=== PATIENT | female | born 1975 | race Hispanic/Latino ===

== ENCOUNTER → 2016-06-01 | Outpatient (CLI) | payer OTHER ==
[2016-06-01 14:21] LABS: BASO % 0.2 % (0.0-1.0); EOS # 0.1 K/mm3 (0.0-0.50); EOS % 1.6 % (0.0-3.0); LARGE UNSTAINED CELL # 0.1 K/mm3 (0.0-0.4); LARGE UNSTAINED CELL % 1.1 % (0.0-4.0); LYMPH # 1.2 K/mm3 (1.5-4.5); LYMPH % 19.6 % (24.0-44.0); MEAN CORPUSCULAR HEMOGLOBIN 32.9 pg (27.0-33.0); MEAN CORPUSCULAR HGB CONC 33.9 g/dl (32.0-36.5); MONO # 0.4 K/mm3 (0.0-0.8); NEUTROPHILS # 4.1 K/mm3 (1.8-7.7); NEUTROPHILS % 71.4 % (36.0-66.0); PLATELET COUNT, AUTOMATED 189 k/mm3 (150-450); RED CELL DISTRIBUTION WIDTH 13.1 % (11.5-14.5); WHITE BLOOD COUNT 5.8 K/mm3 (4.0-10.0)
== END ==
LOC: M SMT 10:48
PROVIDERS: ATTEND Advanced Practice Midwife
DX: Z34.83 Encounter for supervision of other normal pregnancy, third trimester (principal)

== ENCOUNTER → 2016-06-01 | Outpatient (CLI) | payer OTHER ==
--- NOTE | 2016-06-01 09:54 | REP ---
OB ULTRASOUND: Real-time sonographic evaluation of the gravid uterus performed. There is a single living intrauterine gestation with an estimated age of 26 weeks and EDC 09/07/2016. Today's measurements indicate appropriate growth. BPD 70 mm 28 weeks 2 days, over 95th percentile HC 252 mm 27 weeks 3 days, 80th percentile AC 235 mm 27 weeks 6 days, 88th percentile FL 47 mm 25 weeks 4 days, 43rd percentile HC/AC ratio 1.07 within normal range. Estimated weight 1019 grams, 73rd percentile. Cervix closed and measures 4.2 cm in length. heart rate 147 beats per minute. SEEN/GROSSLY UNREMARKABLE Lateral ventricles Yes Posterior fossa Yes Upper lip Yes Four-chamber heart Yes LVOT Yes RVOT Yes Stomach Yes Cord insertion Yes Three vessel cord Yes Kidneys Yes Bladder Yes Spine Yes position: Breech. Placenta: Anterior and grade 1 with no previa or abruption. Amniotic fluid: Within normal limits. Signed by Oswald Borja MD 06/01/2016 10:13 A
== END ==
LOC: M SMT 08:08
PROVIDERS: ATTEND Advanced Practice Midwife
DX: Z34.83 Encounter for supervision of other normal pregnancy, third trimester (principal)

== ENCOUNTER → 2016-07-12 | Outpatient (CLI) | payer OTHER | LOC: M LAB 09:08 | PROVIDERS: ATTEND Advanced Practice Midwife | DX: Z36 Encounter for antenatal screening of mother (principal); Z3A.00 Weeks of gestation of pregnancy not specified ==

== ENCOUNTER → 2016-08-15 | Outpatient (REF) | payer OTHER | LOC: M LAB REF 17:05 | PROVIDERS: ATTEND Obstetrics & Gynecology | DX: Z34.83 Encounter for supervision of other normal pregnancy, third trimester (principal) ==

== ENCOUNTER 2016-08-19 08:41 | Outpatient (CLI) | payer OTHER ==
[~2016-08-19] VITALS: Ht 157.5 cm; Wt 66.0 kg
[2016-08-19 09:08] VITALS: BP 96/54
== END 2016-08-19 09:30 | disposition home or self-care (01) ==
LOC: M LDO 08:41
PROVIDERS: ATTEND Specialist
DX: O26.893 Other specified pregnancy related conditions, third trimester (principal); O09.513 Supervision of elderly primigravida, third trimester; Z3A.37 37 weeks gestation of pregnancy

== ENCOUNTER 2016-08-30 20:00 | Outpatient (CLI) | payer OTHER ==
[~2016-08-30] VITALS: Ht 149.9 cm; Wt 68.0 kg
[2016-08-30] MEDS ORDERED: PRENTAB9 PO (20:06)
== END 2016-08-30 22:20 | disposition home or self-care (01) ==
LOC: M LDO 20:00
PROVIDERS: ATTEND Obstetrics & Gynecology
DX: O47.1 False labor at or after 37 completed weeks of gestation (principal); O09.523 Supervision of elderly multigravida, third trimester; Z3A.38 38 weeks gestation of pregnancy

== ENCOUNTER 2016-09-12 16:23 | Inpatient (IN) | payer OTHER ==
[2016-09-12] VITALS (7 sets, daily range): BP systolic 92–104; BP diastolic 51–66
[~2016-09-12] VITALS: Ht 149.9 cm; Wt 66.0 kg
[~2016-09-12 16:23] MED LIST: PRENTAB9 PO
[2016-09-12 17:16] LABS: MEAN CORPUSCULAR HEMOGLOBIN 32.9 pg (27.0-33.0); MEAN CORPUSCULAR VOLUME 89.9 fl (80.0-96.0); RED CELL DISTRIBUTION WIDTH 13.4 % (11.5-14.5); WHITE BLOOD COUNT 6.3 K/mm3 (4.0-10.0)
[2016-09-12 17:18] LABS: MEAN CORPUSCULAR HGB CONC 35.9 g/dl (32.0-36.5)
[2016-09-12] MEDS: miSOPROStol 50 MCG 1/2 TAB (S0191) PO SCH ×2 (17:48→22:08)
[2016-09-13] VITALS (11 sets, daily range): BP systolic 88–111; BP diastolic 53–67
[2016-09-13] MEDS: miSOPROStol 50 MCG 1/2 TAB (S0191) PO SCH (02:07)
[2016-09-13] MEDS ORDERED: OXYTOCIN 30 UNITS IN 0.9% NaCl 500ML IV BAG (J2590) As Ordered ONE (03:00)
[2016-09-13] MEDS ORDERED: MIDAZOLAM INJ 2 MG/2 ML VIAL (J2250) As Ordered ONE (03:35)
[2016-09-13] MEDS ORDERED: ceFAZolin 2 GM/D5W 50 ML IV BAG (J0690) As Ordered ONE (03:45)
[2016-09-13] MEDS ORDERED: fentaNYL 100 MCG/2 ML INJECTION (J3010) As Ordered ONE ×2 (03:50→04:51)
[2016-09-13] MEDS ORDERED: ONDANSETRON 4MG/2ML VIAL (J2405) As Ordered ONE (03:51)
[2016-09-13] MEDS ORDERED: KETOROLAC 60 MG/2 ML VIAL (J1885) As Ordered ONE (03:51)
[2016-09-13] MEDS ORDERED: GLYCOPYRROLATE INJ 0.2 MG/ML 2 ML VIAL As Ordered ONE ×2 (03:53→03:54)
[2016-09-13] MEDS ORDERED: NEOSTIGMINE 10 MG/10 ML VIAL (J2710) As Ordered ONE (03:54)
[2016-09-13 04:05] LABS: CORD GAS ABE A -16.8; CORD GAS HCO3 A 17.1 MEQ/L; CORD GAS O2 SAT A 33.5 %; CORD GAS PCO2 A 82.2 mmHg; CORD GAS PH A 6.935 UNITS; CORD GAS PO2 A 26.6 mmHg; CORD GAS TCO2 A 19.6 MEQ/L
[2016-09-13 04:10] LABS: CORD GAS ABE V -10.1; CORD GAS HCO3 V 20.3 MEQ/L; CORD GAS O2 SAT V 75.4 %; CORD GAS PCO2 V 63.8 mmHg; CORD GAS PH V 7.12 UNITS; CORD GAS PO2 V 43.7 mmHg; CORD GAS SBC V 16.1 MEQ/L; CORD GAS TCO2 V 22.2 MEQ/L
[2016-09-13] MEDS: LR 1,000 ML IV SCH ×3 (04:30→20:28)
[2016-09-13] MEDS ORDERED: MEASLES,MUMPS,RUBELLA VACCINE INJ (MMR-II) (90707) SC SCH (04:30)
[2016-09-13] MEDS ORDERED: PERCOCET 5MG/325MG TAB PO PRN ×2 (04:30→05:15)
[2016-09-13] MEDS ORDERED: DOCUSATE SODIUM 100 MG CAP PO PRN (04:30)
[2016-09-13] MEDS ORDERED: OXYTOCIN DRIP 30 UNITS in APPROPRIATE DILUENT 1 EA IV ONE (04:30)
[2016-09-13] MEDS ORDERED: MOM 30ML SUSPENSION UDC PO PRN (04:30)
[2016-09-13] MEDS ORDERED: RHOGAM 300 MCG (1500 IU) INJ (J2790) IM SCH (04:30)
[2016-09-13] MEDS ORDERED: NS 1,000 ML IV SCH (04:35)
[2016-09-13] MEDS ORDERED: MEPERIDINE 50 MG/ML 1ML VIAL (J2175) As Ordered ONE (04:36)
[2016-09-13] MEDS ORDERED: NALBUPHINE HCL 10 MG/ML AMP (J2300) IV PRN (04:45)
[2016-09-13] MEDS ORDERED: ONDANSETRON 4MG/2ML VIAL (J2405) IV PRN ×2 (04:45→05:15)
[2016-09-13] MEDS ORDERED: MORPHINE 1MG/ML IN 0.9% NACL 100ML IV BAG IV PRN (04:45)
[2016-09-13] MEDS ORDERED: diphenhydrAMINE INJ 50MG/ML VIAL (J1200) IV PRN (04:45)
[2016-09-13] MEDS ORDERED: NALOXONE INJ 0.4 MG/1 ML VIAL (J2310) IV PRN (04:45)
[2016-09-13] MEDS ORDERED: EPIDURAL/PCA KEYS XX PRN (04:45)
--- NOTE | 2016-09-13 04:51 | REP ---
Clinical: Emergency section without instrument count. Technique: Portable intraoperative supine view of the abdomen and pelvis. Findings: Postoperative changes are appreciated. No foreign body material noted. Impression: No foreign body appreciated. Signed by Darryl Leal MD 09/13/2016 04:43 A
[2016-09-13] MEDS: fentaNYL 100 MCG/2 ML INJECTION (J3010) IV PRN ×4 (04:52→05:12)
[2016-09-13] MEDS ORDERED: MORPHINE 1MG/ML IN 0.9% NACL 100ML IV BAG As Ordered ONE (05:00)
[2016-09-13] MEDS ORDERED: LR 1,000 ML IV SCH (05:15)
[2016-09-13] MEDS ORDERED: METOCLOPRAMIDE INJ 10MG/2ML VIAL (J2765) IV PRN (05:15)
[2016-09-13] MEDS ORDERED: KETOROLAC 30 MG/ML VIAL (J1885) IV PRN (05:15)
--- NOTE | 2016-09-13 05:40 | RO ---
DATE OF PROCEDURE: 09/13/2016 PREOPERATIVE DIAGNOSES: 1. Cord prolapse. 2. Unstable lie with breech presentation. POSTOPERATIVE DIAGNOSES: 1. Cord prolapse. 2. Unstable lie with breech presentation. PROCEDURE PERFORMED: Emergent primary section. SURGEON: Jamia Pringle MD WARP DYEING TENDER: Fredis Young MD SECOND WARP DYEING TENDER: Polly Plata CNM ANESTHESIA: General endotracheal anesthesia. ESTIMATED BLOOD LOSS: 700 mL. INTRAVENOUS FLUIDS: 1500 mL of lactated Ringer solution. URINE OUTPUT: Undetermined. There was no Franco catheter. ANTIBIOTICS: 2 grams of Ancef. OPERATIVE FINDINGS: Liveborn male , score 4, 6, 9. Weight was 3970 grams or 8 pounds 12 ounces. Cord gases 6.93, 7.12 with base excesses of -16.8 and -10.1 respectively. Intraoperative x-ray secondary to lack of instrument count show no intraabdominal laparotomy sponges or instruments. SPECIMENS: Cord gases. INDICATION FOR OPERATION: Patient is a 41-year-old, 5, para 4, who presented for induction of labor at 40 weeks. She presented for labor induction and was examined with a cervical exam of 2 cm dilation. A bedside ultrasound was also performed confirming cephalic presentation. Her induction was started with misoprostol. She spontaneously ruptured membranes and shortly after she was assessed and was found to have limbs present initially on evaluation. A prolapse umbilical cord was also palpated. At which time, stat section was called for malpresentation and prolapse cord. Surgery was started by Dr. Young. DESCRIPTION OF OPERATION: Patient was rushed to the operating room. At which time, general anesthesia was then obtained. There was a splash prep that was performed, and Dr. Young initiated the skin incision. A Pfannenstiel skin incision was made, which was carried down to underlying rectus fascia. The fascia was manually extended. The rectus muscles were then in the midline. The peritoneum was then entered. A curvilinear incision was made in the lower uterine segment. This incision was manually extended. The fetus was delivered. Cord was clamped times two and was cut. Infant was taken over to the warmer. Placenta was then delivered grossly intact. The uterus was then exteriorized and cleared of all clots and debris. The uterine incision was closed in two layers. First layer was #0 Monocryl in a running locking fashion , followed by a second layer of #0 Vicryl in a running nonlocking fashion. Several [id number] stitches were placed for hemostasis. The abdomen was then suctioned. The uterus was returned to the patient's abdomen and was re- inspected and noted to be hemostatic. The anterior peritoneum was then reapproximated with #3-0 Vicryl. The fascia was then closed with #0 Vicryl in a running nonlocking fashion. The subcutaneous tissue was reapproximated with #3-0 Vicryl. Several subdermal stitches were placed with #3-0 Vicryl and the skin was closed with #4-0 Monocryl in a subcuticular fashion. The incision was then cleaned and dry. Mastisol was applied above and below the incision. Steri-Strips were applied over the incision. The incision was dressed. The patient was then awakened from general anesthesia and taken to recovery in stable condition. JOSE ANTONIO
--- NOTE | 2016-09-13 06:25 | HPE ---
DATE OF ADMISSION: 09/12/2016 HISTORY OF PRESENT ILLNESS: A 41-year-old 5, para 4-0-0-3, estimated date of delivery 09/07/2016, here at 40 weeks 5 days for induction of labor. Denies regular contractions, loss of fluid or bleeding. Fetus is active. The patient is [place], [facility] dialect. She has a carbon capture power plant operator, Tasneem, here with her. Last known menstrual period is unknown. Sonogram at seven weeks confirmed her date. Anatomy scan within normal limits. The patient was referred to the center for advanced maternal age (AMA) workup. However, she was unable to keep the appointment. has been complicated by communication difficulties and breech presentation up to 36 weeks. ALLERGIES: She has no known drug allergies. OBSTETRICAL HISTORY: 1997: Viable male at term at one month due to fever. 1998: Normal spontaneous vaginal , viable female 5 pounds at 40 weeks. 2008: Normal spontaneous vaginal , viable female 6 pounds at 40 weeks. 2010: Normal spontaneous vaginal , viable male 4 pounds a 40 weeks. MEDICAL-SURGICAL HISTORY: Noncontributory. FAMILY HISTORY: Noncontributory. SOCIAL HISTORY: She is single. Family is supportive. Denies tobacco, alcohol, drugs or abuse. OBJECTIVE: Prepregnancy weight is unknown. Weight at entry to care at 12 weeks was 134. Total weight gain 19 pounds. O positive, antibody negative, rubella immune, venereal disease research laboratory (VDRL), hepatitis B, hepatitis C, HIV, gonorrhea and chlamydia all negative. Never completed her genetic testing. One-hour glucose 138. Three-hour glucose 118, 137, 127 and 117. Group B strep is negative. Vital signs are stable. She is in no apparent distress. Bedside sonogram confirms vertex. Abdomen is soft, gravid, longitudinal lie. Irregular contractions. heart was 145, moderate variability with accelerations. Sterile vaginal exam: 1-2 cm, 50% and -2 station. ASSESSMENT Multipara at term for induction of labor, category one tracing. PLAN: Admit per consult Dr. Pringle. Misoprostol cervical ripening. The patient plans to labor ad jade. Anticipate normal spontaneous vaginal . [facility]
[2016-09-13] MEDS: AMPICILLIN SOD/SULBACTAM SOD 3 GM in D5W MINI-BAG PLUS 100 ML IV SCH ×3 (08:00→19:41)
[2016-09-13] MEDS: PRENATAL VITAMIN TAB PO SCH (08:53)
[2016-09-13] MEDS: KETOROLAC 30 MG/ML VIAL (J1885) IV SCH ×3 (10:10→21:22)
--- NOTE | 2016-09-13 18:04 | RO ---
DATE OF PROCEDURE: 09/13/2016 Please see follow on dictations from Dr. Pringle in regards to this patient. Patient is a 41-year-old @40+5, presenting at 40 and 5 for a late term induction of labor by civilian OB practice in [facility]. Contacted emergently in regards to clinical education assistant requested by rn international production expediter. Reported by nursing that infant had repositioned to breech, with a "possible cord". Upon arrival in room, noted patient on all fours with heart rate noted to be in the 50-60s, rn international with hand reported to be maintaining umbilical cord that had prolapsed. Discussion with family through grape picker, as discovered non- Hungarian speaking only, that this was indication for emergency section. Reviewed that OB-ASSISTANT PURCHASING MANAGER surgeon not physically in-house for this practice, therefore in regards to emergent obstetrical situation quickly reviewed risks of section to include pain, bleeding, infection, , injury to self or fetus, another procedure, and need for emergency intervention. Patient was aware that I was a [employer] OB-ASSISTANT PURCHASING MANAGER provider. This was verbally obtained. The patient was taken to the operating room where Dr. Charles was was available for general anesthesia. PREPROCEDURE DIAGNOSIS: 1) Late term 2) NRFHR 3) Prolapsed Umbilical Cord 4) Breech presentation POSTPROCEDURE DIAGNOSIS: 1) Late term 2) NRFHR 3) Prolapsed Umbilical Cord 4) Breech presentation complete PROCEDURE: Primary Low Transverse Section SURGEON: Fredis Young MD KRAFT MILL OPERATOR: None for my part of the case. CNM with hand supporting umbilical cord. ANESTHESIA: General, Dr. Charles. See fluid, estimated blood loss and urine output follow on from Dr. Pringle. DESCRIPTION OF PROCEDURE: Last heart rate tracing heard was in the 70s. After urgent time out, patient was emergently prepped and drapped in an emergency fashion, a low transverse Pfannenstiel skin incision was made and carried through to the underlying layer of fascia. Once the fascia was incised, manually extended fascia opening, rectus was in the midline, peritoneum was identified entered and digitally. Next after a bladder blade was introducted, a low transverse uterine incision was made. This was also extended manually in routine fashion. Infant noted to be in complete breech presentation. The usual breech maneuvers were performed to allow for delivery of the head. Cord was doubly clamped and cut. Noted no spontaneous movement or activity of the fetus at this time. The was taken over to the waiting intensive care unit (NICU) team where NICU nurse was present. No NICU provider in room. Cord gases were obtained from the placenta with a segment of cord. Next, the placenta was removed with manual traction. The uterus was exteriorized, cleared of all clot and debris. A #0 Monocryl was used to close the hysterotomy in routine fashion/primary layer. At this point, Dr. Pringle entered the room and took over as primary management of the patient as operative surgeon. Please see his follow on case. Upon my breaking scrub, went to evaluate patient, noticed on the left superior aspect of the gluteus, approximately a 2 cm superficial laceration noted without active bleeding, demonstrated no limitation to 's ability to move right lower extremity. 2gm Ancef provided after delivery was obtained. Radiology in room for KUB for evaluation/as no count performed. Noted to appear to be normal. Male . Weight: 3970gm, 8#12 APGARs: 4, 6, 9 Gases (Arterial): pH: 6.935 PaCO2: 82.2 BE: -16.8 (Venous): pH: 7.120 PaCO2: 63.8 BE: -10.1 Mike Young OB-ASSISTANT PURCHASING MANAGER KIZZYD
[2016-09-14] MEDS: AMPICILLIN SOD/SULBACTAM SOD 3 GM in D5W MINI-BAG PLUS 100 ML IV SCH ×2 (03:09→09:47)
[2016-09-14] MEDS: KETOROLAC 30 MG/ML VIAL (J1885) IV SCH (03:09)
[2016-09-14] MEDS: LR 1,000 ML IV SCH (04:30)
[2016-09-14 06:00] VITALS: BP 96/56
[2016-09-14 07:06] LABS: MEAN CORPUSCULAR HEMOGLOBIN 31.3 pg (27.0-33.0); MEAN CORPUSCULAR HGB CONC 33.9 g/dl (32.0-36.5); MEAN CORPUSCULAR VOLUME 92.2 fl (80.0-96.0); RED CELL DISTRIBUTION WIDTH 13.8 % (11.5-14.5); WHITE BLOOD COUNT 8.9 K/mm3 (4.0-10.0)
[2016-09-14] MEDS ORDERED: PERCOCET PO (09:26)
[2016-09-14] MEDS ORDERED: IBUP800T23 PO (09:27)
[2016-09-14] MEDS: PRENATAL VITAMIN TAB PO SCH (09:47)
[2016-09-14] MEDS: PERCOCET 5MG/325MG TAB PO PRN (09:49)
[2016-09-14] MEDS: IBUPROFEN 800 MG TAB PO SCH ×2 (12:18→20:06)
[2016-09-14 14:00] VITALS: BP 92/54
[2016-09-14 18:00] VITALS: BP 87/46
[2016-09-14 19:50] VITALS: BP 87/46
[2016-09-14 22:00] VITALS: BP 108/56
[2016-09-15 02:02] VITALS: BP 108/57
[2016-09-15] MEDS: IBUPROFEN 800 MG TAB PO SCH (04:15)
[2016-09-15 06:00] VITALS: BP 100/59
[2016-09-15] MEDS: PRENATAL VITAMIN TAB PO SCH (08:27)
[2016-09-15] MEDS: PERCOCET 5MG/325MG TAB PO PRN (08:29)
[2016-09-15 10:36] VITALS: BP 89/50
== END 2016-09-15 13:17 | disposition home or self-care (01) | DRG 540 ==
LOC: M LDI 16:23 → M OBS 09-13 06:01
PROVIDERS: ADMIT Advanced Practice Midwife; ATTEND Obstetrics & Gynecology
PROC: 10907ZC Drainage of Amniotic Fluid, Therapeutic from Products of Conception, Via Natural or Artificial Opening (ICD-10-PCS; 2016-09-12)
PROC: 10D00Z1 Extraction of Products of Conception, Low, Open Approach (ICD-10-PCS; principal; 2016-09-13 03:00)
DX: O48.0 Post-term pregnancy (principal); O32.1XX0 Maternal care for breech presentation, not applicable or unspecified; Z3A.40 40 weeks gestation of pregnancy; O69.0XX0 Labor and delivery complicated by prolapse of cord, not applicable or unspecified; O77.0 Labor and delivery complicated by meconium in amniotic fluid; Z37.0 Single live birth

== ENCOUNTER → 2017-02-07 | Outpatient (REF) | payer MEDICAID ==
[~2017-02-07] MED LIST changes: +DICL500C PO; +IBUP1TAB7 PO; +PERCOCET PO
== END ==
LOC: M LAB REF 17:52
PROVIDERS: ATTEND Obstetrics & Gynecology
DX: Z12.4 Encounter for screening for malignant neoplasm of cervix (principal); B37.9 Candidiasis, unspecified

== ENCOUNTER 2019-08-18 18:36 | Emergency (ER) | payer MEDICAID ==
[~2019-08-18] VITALS: Ht 149.9 cm; Wt 69.3 kg
[2019-08-18 19:53] LABS: HEMATOCRIT 38.4 % (36.0-47.0); MEAN CORPUSCULAR HEMOGLOBIN 31.4 pg (27.0-33.0); MEAN CORPUSCULAR HGB CONC 33.9 g/dl (32.0-36.5); MEAN CORPUSCULAR VOLUME 92.8 fl (80.0-96.0); PLATELET COUNT, AUTOMATED 201 10^3/uL (150-450); RED BLOOD COUNT 4.14 10^6/uL (4.00-5.40); WHITE BLOOD COUNT 6.7 10^3/uL (4.0-10.0)
[2019-08-18 20:42] LABS: ALBUMIN 3.8 GM/DL (3.2-5.2); BILIRUBIN,DIRECT 0.2 MG/DL (0.0-0.2); BILIRUBIN,TOTAL 0.5 MG/DL (0.2-1.0); TOTAL PROTEIN 7.9 GM/DL (6.4-8.2)
[2019-08-18 21:26] LABS: CHLAMYDIA DNA AMPLIFICATION NEGATIVE (NEGATIVE); GC DNA AMPLIFICATION NEGATIVE (NEGATIVE)
[2019-08-18 22:04] VITALS: BP 104/58
--- NOTE | 2019-08-19 09:42 | REP ---
Clinical: Early with vaginal bleeding. Technique: Transabdominal first trimester obstetrical ultrasound with color Doppler evaluation. Findings: Bladder is normal and measures 7.7 x 5.2 x 7.4 cm. Anteverted uterus measures 11.2 x 7.9 x 5.0 cm. An irregular gestational sac is identified with pole and yolk sac. No cardiac activity is identified and findings are highly suspect for spontaneous . Differential diagnosis would include early and follow-up examination may be warranted. Impression: 1. Irregular gestational sac with pole, but no cardiac activity noted. Findings suggest spontaneous . Differential diagnosis includes early . Correlation with serial HCG levels and repeat ultrasound as necessary. Electronically Signed by Darryl Leal MD 08/19/2019 09:34 A
--- NOTE | 2019-08-19 09:44 | REP ---
Clinical: Abdominal pain with elevated liver function tests. Technique: Real time vasques scale ultrasound examination using curved array transducer. Findings: The liver is echogenic with decreased through transmission suggesting fatty infiltration. No focal hepatic lesion identified. Focal fatty sparing around the gallbladder fossa noted. The pancreas is incompletely evaluated due to interposed bowel gas but visualized portions appear normal. The gallbladder is normal and without gallstones, wall thickening, or pericholecystic fluid. No biliary ductal dilatation is appreciated and the common bile duct measures 4 mm diameter. Right kidney is normal in reniform shape without hydronephrosis and measures 10.0 x 5.0 x 4.0 cm. No ascites in the visualized right upper quadrant. Impression: Hepatic steatosis. Electronically Signed by Darryl Leal MD 08/19/2019 09:35 A
== END 2019-08-18 22:05 | disposition home or self-care (01) ==
LOC: M ED 18:36
DX: O20.0 Threatened abortion (principal); O26.611 Liver and biliary tract disorders in pregnancy, first trimester; K76.0 Fatty (change of) liver, not elsewhere classified; R94.5 Abnormal results of liver function studies; Z3A.01 Less than 8 weeks gestation of pregnancy

== ENCOUNTER 2019-08-19 22:09 | Emergency (ER) | payer MEDICAID, OTHER ==
[2019-08-19] MEDS ORDERED: NS 1,000 ML IV ONE (22:30)
[2019-08-19 22:43] LABS: BASO % 0.3 % (0.0-1.0); EOS # 0.3 10^3/uL (0.0-0.5); EOS % 4.5 % (0.0-3.0); HEMATOCRIT 39.1 % (36.0-47.0); HEMOGLOBIN 13.5 g/dl (12.0-15.5); LYMPH # 2.9 10^3/uL (1.5-5.0); LYMPH % 38.7 % (24.0-44.0); MEAN CORPUSCULAR HEMOGLOBIN 31.6 pg (27.0-33.0); MEAN CORPUSCULAR HGB CONC 34.5 g/dl (32.0-36.5); MEAN CORPUSCULAR VOLUME 91.6 fl (80.0-96.0); MONO # 0.8 10^3/uL (0.0-0.8); MONO % 10.5 % (0.0-5.0); NEUTROPHILS # 3.5 10^3/uL (1.5-8.5); NEUTROPHILS % 45.7 % (36.0-66.0); PLATELET COUNT, AUTOMATED 221 10^3/uL (150-450); RED BLOOD COUNT 4.27 10^6/uL (4.00-5.40); WHITE BLOOD COUNT 7.6 10^3/uL (4.0-10.0)
[2019-08-19] MEDS ORDERED: MORPHINE 4 MG/ML 1ML VIAL/SYRINGE (J2270) IV ONE (23:30)
[2019-08-20 00:53] VITALS: BP 103/63
[2019-08-20] MEDS ORDERED: NORCO 5/325MG TABLET (BULK FOR ED) PO ONE (01:00)
== END 2019-08-20 00:59 | disposition home or self-care (01) ==
LOC: M ED 22:09
DX: O03.4 Incomplete spontaneous abortion without complication (principal)
CPT/HCPCS: 84702; 85025; 86850; 86900; 86901; 96361; 96374; 99284; J2270

== ENCOUNTER → 2019-10-21 | Outpatient (CLI) | payer OTHER ==
--- NOTE | 2020-01-06 07:51 | REP ---
PELVIC ULTRASOUND INCLUDING TRANSABDOMINAL, ENDOVAGINAL AND DOPPLER ULTRASOUND ASSESSMENT: Delay in reporting results from hospital computer system malfunction from malware/ ransomware. HISTORY: The study is performed for prolonged excessive menses and left adnexal pain. The patient is actively bleeding at the time of the ultrasound examination. FINDINGS: The uterus is normal size, measuring 7.9 x 4.4 x 7.2 cm. There is a mass-like structure in the fundal portion of the endometrium measuring up to 2.0 cm in diameter with a heterogeneous appearance. There is swirlling motion within this mass. This could represent a clot, endometrial mass or combination. The uterus is retroverted. RIGHT OVARY: In the right adnexa, there is a cystic structure measuring 4.0 x 3.6 x 3.8 cm. No definite left ovarian tissue is identified and may be effaced along the margin of this cyst. LEFT OVARY: The left ovary is normal size, measuring 2.6 x 1.0 x 2.1 cm. With Doppler assessment, there is vascular flow in the left ovary. There is no dominant left ovarian mass or cyst. There is no free fluid in the pelvis. IMPRESSION: The uterus is retroverted. There is a 2.0 cm mass-like structure in the uterine fundal portion of the endometrium. There is some swirling motion within this mass-like structure. This may represent an endometrial mass, clot, or combination. There is a 4.0 cm cyst in the right adnexa. The right ovary is not identified as a distinct structure. The left ovary is unremarkable. A follow up ultrasound after 1 or 2 menstrual cycles might be considered for follow up of the findings in the endometrium versus pelvic MRI versus uteroscopy. The right ovarian cyst could also be followed up by ultrasound after 1 or 2 menstrual cycles. KIZZYD
== END ==
LOC: M WHC 07:46
PROVIDERS: ATTEND Nurse Practitioner Women's Health
DX: N83.201 Unspecified ovarian cyst, right side (principal); N85.4 Malposition of uterus; N92.1 Excessive and frequent menstruation with irregular cycle; R10.2 Pelvic and perineal pain

== ENCOUNTER → 2020-01-20 | Outpatient (CLI) | payer OTHER | LOC: M WHC 13:35 | PROVIDERS: ATTEND Obstetrics & Gynecology | DX: Z53.21 Procedure and treatment not carried out due to patient leaving prior to being seen by health care provider (principal); N63.20 Unspecified lump in the left breast, unspecified quadrant ==

== ENCOUNTER → 2020-01-20 | Outpatient (CLI) | payer OTHER ==
--- NOTE | 2020-01-20 15:31 | REP ---
INDICATION: N63.20 LT BREAST LUMP. COMPARISON: Baseline study. TECHNIQUE: MLO and CC views of both breasts performed with tomosynthesis, as well as with spot compression views of a palpable lump laterally which is marked on the skin. Focused left breast ultrasound performed at the site of the palpable lump. FINDINGS: Moderate fibroglandular tissue is symmetrically bilaterally. There is no mass or architectural distortion. No clustered microcalcifications are seen. No mammographic abnormalities seen at the site of the palpable lump. Real-time sonographic evaluation of left breast performed laterally at the site of the palpable lump. No cystic or solid nodule is seen sonographically. The Volpara volumetric breast density pattern is C. IMPRESSION: BIRADS/ACR 1-mammogram bilaterally. No mass or clustered microcalcifications. There is no mammographic or sonographic evidence of a mass at the site of the reported palpable lump laterally in the left breast. A negative mammogram and ultrasound should not deter biopsy if there is a clinically suspicious palpable mass present. Clinical correlation and follow-up recommended. This patient's Tyrer-Cuzick lifetime breast cancer risk assessment score is 8.1%. This mammogram was interpreted with the aid of an FDA-approved computer-aided detection system. The patient states she had a clinical breast exam in December 2019. The patient letter being requested is M2. RECOMMENDATION: Repeat screening mammography recommended 1 year (for women over 40). Clinical correlation and follow-up of palpable lump recommended. <Electronically signed by Oswald Borja > 01/20/20 [id number]
== END ==
LOC: M WHC 13:06
PROVIDERS: ATTEND Specialist
DX: N63.20 Unspecified lump in the left breast, unspecified quadrant (principal)
CPT/HCPCS: 76642; 77066; G0279

== ENCOUNTER 2022-05-16 11:44 | Inpatient (IN) | payer OTHER ==
[~2022-05-16] VITALS: Ht 149.9 cm; Wt 63.0 kg
[2022-05-16 12:34] LABS: BASO % 0.2 % (0.0-1.0); HEMATOCRIT 37.1 % (36.0-47.0); HEMOGLOBIN 12.7 g/dl (12.0-15.5); LYMPH # 1.8 10^3/uL (1.5-5.0); MEAN CORPUSCULAR HEMOGLOBIN 31.6 pg (27.0-33.0); MEAN CORPUSCULAR HGB CONC 34.2 g/dl (32.0-36.5); MEAN CORPUSCULAR VOLUME 92.3 fl (80.0-96.0); MONO # 1.3 10^3/uL (0.0-0.8); MONO % 6.3 % (2.0-8.0); NEUTROPHILS # 16.7 10^3/uL (1.5-8.5); NEUTROPHILS % 83.7 % (36.0-66.0); PLATELET COUNT, AUTOMATED 190 10^3/uL (150-450); RED BLOOD COUNT 4.02 10^6/uL (4.00-5.40)
[2022-05-16] MEDS ORDERED: MORPHINE 2 MG/ML 1ML VIAL IV ONE (12:40)
[2022-05-16 12:45] LABS: INR 1.09; PROTHROMBIN TIME 14.3 SECONDS (12.5-14.5)
[2022-05-16] MEDS ORDERED: NS 500 ML IV ONE (12:45)
[2022-05-16] MEDS ORDERED: ACETAMINOPHEN TAB 650MG DOSE (2X325MG) PO ONE (12:45)
[2022-05-16] MEDS ORDERED: cefTRIAXone SOD 2 GM in D5W MINI-BAG PLUS 50 ML IV ONE (12:50)
[2022-05-16 12:56] LABS: LIPASE 18 U/L (12-53)
[2022-05-16 12:57] LABS: CK-MB VALUE MASS < 1.0 NG/ML (<3.6); CPK CREATINE PHOSPHOKINASE 52 U/L (34-145); MB/CK RELATIVE INDEX 1.92 (< OR =4)
[2022-05-16 12:58] LABS: ALBUMIN 3.5 G/DL (3.2-5.2); ALKALINE PHOSPHATASE 79 U/L (46-116); ALT/SGPT 31 U/L (7.0-40); AST/SGOT 24 U/L (<34); BILIRUBIN,DIRECT 0.4 MG/DL (<0.4); BILIRUBIN,TOTAL 1.1 MG/DL (0.3-1.2); BLOOD UREA NITROGEN 13 MG/DL (9-23); CALCIUM LEVEL 8.1 MG/DL (8.5-10.1); CARBON DIOXIDE LEVEL 25 MMOL/L (20-31); CHLORIDE LEVEL 105 MMOL/L (98-107); CREATININE FOR GFR 0.66 MG/DL (0.55-1.30); GLOMERULAR FILTRATION RATE > 60.0 (>58); GLUCOSE, FASTING 105 MG/DL (60-100); POTASSIUM SERUM 3.1 MMOL/L (3.5-5.1); SODIUM LEVEL 137 MMOL/L (136-145); TOTAL PROTEIN 7.4 G/DL (5.7-8.2)
[2022-05-16 13:01] LABS: THYROID STIMULATING HORMONE 1.575 uIU/ML (0.55-4.78)
[2022-05-16] MEDS ORDERED: POTASSIUM CHLORIDE 10MEQ SR TABLET PO ONE ×2 (13:05→18:10)
[2022-05-16 13:06] LABS: HCG, SERUM QUALITATIVE NEGATIVE (NEGATIVE)
[2022-05-16 13:30] LABS: RSV AMPLIFICATION NEGATIVE (NEGATIVE)
[2022-05-16] MEDS ORDERED: ISOVUE-370 76% 100ML VIAL As Ordered ONE (13:46)
[2022-05-16 14:15] LABS: CK-MB VALUE MASS < 1.0 NG/ML (<3.6)
[2022-05-16 14:17] LABS: CPK CREATINE PHOSPHOKINASE 57 U/L (34-145); MB/CK RELATIVE INDEX 1.75 (< OR =4)
[2022-05-16] MEDS ORDERED: NS 1,490 ML in IV 1 EA IV ONE (14:50)
[2022-05-16 15:55] LABS: PARTIAL THROMBOPLASTIN TIME 33.2 SECONDS (24.8-34.2)
[2022-05-16] MEDS ORDERED: KETOROLAC 30 MG/ML 1ML VIAL IV ONE ×2 (16:25→23:00)
[2022-05-16] MEDS ORDERED: NS 1,000 ML IV ONE ×2 (16:25→18:25)
[2022-05-16] MEDS ORDERED: HOME MED LIST COMPLETE! XX SCH (17:25)
[2022-05-16] MEDS: MIDODRINE 5 MG TAB PO SCH (17:54)
[2022-05-16] MEDS: NS 1,000 ML IV SCH (18:15)
[2022-05-16] MEDS ORDERED: IPRATROPIUM 0.5MG/ALBUTEROL 2.5MG INH SOL UD 3ML (DUONEB) NEB PRN (18:15)
[2022-05-16 19:04] VITALS: BP 97/55
[2022-05-16] MEDS: IPRATROPIUM 0.5MG/ALBUTEROL 2.5MG INH SOL UD 3ML (DUONEB) NEB SCH (19:33)
[2022-05-16 20:00] VITALS: BP 99/57
[2022-05-16] MEDS ORDERED: DOXYCYCLINE HYCLATE 100 MG in D5W MINI-BAG PLUS 100 ML IV SCH (21:00)
[2022-05-16 23:28] LABS: CK-MB VALUE MASS < 1.0 NG/ML (<3.6)
[2022-05-16 23:30] LABS: CPK CREATINE PHOSPHOKINASE 39 U/L (34-145); MB/CK RELATIVE INDEX 2.56 (< OR =4)
[2022-05-17] VITALS (7 sets, daily range): BP systolic 97–124; BP diastolic 53–71
[2022-05-17] MEDS: IPRATROPIUM 0.5MG/ALBUTEROL 2.5MG INH SOL UD 3ML (DUONEB) NEB SCH ×4 (01:07→19:06)
[2022-05-17] MEDS: NS 1,000 ML IV SCH ×3 (04:41→20:54)
[2022-05-17 05:29] LABS: HEMATOCRIT 31.6 % (36.0-47.0); HEMOGLOBIN 10.6 g/dl (12.0-15.5); MEAN CORPUSCULAR HEMOGLOBIN 31.6 pg (27.0-33.0); MEAN CORPUSCULAR HGB CONC 33.5 g/dl (32.0-36.5); MEAN CORPUSCULAR VOLUME 94.3 fl (80.0-96.0); PLATELET COUNT, AUTOMATED 159 10^3/uL (150-450); RED BLOOD COUNT 3.35 10^6/uL (4.00-5.40); WHITE BLOOD COUNT 17.7 10^3/uL (4.0-10.0)
[2022-05-17 05:48] LABS: BLOOD UREA NITROGEN 9 MG/DL (9-23); CARBON DIOXIDE LEVEL 20 MMOL/L (20-31); CHLORIDE LEVEL 111 MMOL/L (98-107); CK-MB VALUE MASS < 1.0 NG/ML (<3.6); CPK CREATINE PHOSPHOKINASE 33 U/L (34-145); CREATININE FOR GFR 0.53 MG/DL (0.55-1.30); GLOMERULAR FILTRATION RATE > 60.0 (>58); GLUCOSE, FASTING 100 MG/DL (60-100); MB/CK RELATIVE INDEX 3.03 (< OR =4); POTASSIUM SERUM 3.7 MMOL/L (3.5-5.1); SODIUM LEVEL 139 MMOL/L (136-145)
[2022-05-17 06:55] LABS: LYMPHOCYTES 14 % (16-44); METAMYELOCYTES 1 % (0-0); MONOCYTES 2 % (0-5); NEUTROPHILS 76 % (28-66)
[2022-05-17 06:56] LABS: PLATELET ESTIMATE NORMAL (NORMAL)
[2022-05-17] MEDS: MIDODRINE 5 MG TAB PO SCH (08:00)
[2022-05-17] MEDS: PANTOPRAZOLE 40MG VIAL IV SCH (08:42)
[2022-05-17] MEDS: ENOXAPARIN 40MG/0.4ML SYRINGE (J1650 PER 10MG) SC SCH (08:42)
[2022-05-17] MEDS ORDERED: DOXYCYCLINE HYCLATE 100MG TABLET PO SCH (09:00)
[2022-05-17] MEDS: ONDANSETRON 4MG 2ML VIAL IV SCH ×4 (10:04→22:00)
[2022-05-17] MEDS: cefTRIAXone SOD 2 GM in D5W MINI-BAG PLUS 50 ML IV SCH (10:04)
[2022-05-17] MEDS ORDERED: ACETAMINOPHEN 1000MG 100ML IV BAG IV ONE (11:00)
[2022-05-17] MEDS ORDERED: INFLUENZA QUADRIVALENT PF VACCINE 0.5ML SYRINGE IM.IMMUN ONE (12:00)
[2022-05-17 12:05] LABS: CK-MB VALUE MASS < 1.0 NG/ML (<3.6)
[2022-05-17 12:06] LABS: CPK CREATINE PHOSPHOKINASE 35 U/L (34-145); MB/CK RELATIVE INDEX 2.85 (< OR =4)
[2022-05-17] MEDS ORDERED: CALCIUM GLUCONATE 1,000 MG in D5W MINI-BAG PLUS 100 ML IV ONE (12:40)
[2022-05-17 14:21] LABS: CHOLESTEROL RISK RATIO 3.3 (<5); HDL CHOLESTEROL 38.4 MG/DL (>40); LDL CHOLESTEROL 65.8 MG/DL (<100)
[2022-05-17] MEDS: ACETAMINOPHEN TAB 650MG DOSE (2X325MG) PO PRN (19:47)
[2022-05-17] MEDS: DOXYCYCLINE HYCLATE 100 MG in D5W MINI-BAG PLUS 100 ML IV SCH (20:54)
[2022-05-18] MEDS: IPRATROPIUM 0.5MG/ALBUTEROL 2.5MG INH SOL UD 3ML (DUONEB) NEB SCH ×4 (01:09→18:17)
[2022-05-18] MEDS: ONDANSETRON 4MG 2ML VIAL IV SCH ×3 (02:00→09:49)
[2022-05-18 04:23] VITALS: BP 115/65
[2022-05-18 04:53] LABS: BASO % 0.2 % (0.0-1.0); EOS # 0.1 10^3/uL (0.0-0.5); EOS % 0.4 % (0.0-3.0); HEMATOCRIT 30.6 % (36.0-47.0); HEMOGLOBIN 10.2 g/dl (12.0-15.5); LYMPH # 1.7 10^3/uL (1.5-5.0); LYMPH % 14.7 % (24.0-44.0); MEAN CORPUSCULAR HGB CONC 33.3 g/dl (32.0-36.5); MONO # 0.7 10^3/uL (0.0-0.8); MONO % 6.2 % (2.0-8.0); NEUTROPHILS # 8.8 10^3/uL (1.5-8.5); PLATELET COUNT, AUTOMATED 175 10^3/uL (150-450); RED BLOOD COUNT 3.29 10^6/uL (4.00-5.40); WHITE BLOOD COUNT 11.3 10^3/uL (4.0-10.0)
[2022-05-18 05:25] LABS: BLOOD UREA NITROGEN 5 MG/DL (9-23); CALCIUM LEVEL 7.8 MG/DL (8.5-10.1); CARBON DIOXIDE LEVEL 21 MMOL/L (20-31); CHLORIDE LEVEL 111 MMOL/L (98-107); CREATININE FOR GFR 0.52 MG/DL (0.55-1.30); GLOMERULAR FILTRATION RATE > 60.0 (>58); GLUCOSE, FASTING 99 MG/DL (60-100); POTASSIUM SERUM 3.2 MMOL/L (3.5-5.1); SODIUM LEVEL 141 MMOL/L (136-145)
[2022-05-18] MEDS: ACETAMINOPHEN TAB 650MG DOSE (2X325MG) PO PRN ×2 (06:10→09:49)
[2022-05-18] MEDS ORDERED: METOPROLOL TART 25 MG TABLET PO ONE (07:00)
[2022-05-18] MEDS ORDERED: POTASSIUM CHLORIDE 10MEQ SR TABLET PO ONE (07:20)
[2022-05-18 07:35] VITALS: BP 112/61
[2022-05-18 07:40] VITALS: BP 114/59
[2022-05-18] MEDS: DOXYCYCLINE HYCLATE 100 MG in D5W MINI-BAG PLUS 100 ML IV SCH (08:51)
[2022-05-18] MEDS: PANTOPRAZOLE 40MG VIAL IV SCH (08:51)
[2022-05-18] MEDS: ENOXAPARIN 40MG/0.4ML SYRINGE (J1650 PER 10MG) SC SCH (08:52)
[2022-05-18] MEDS: cefTRIAXone SOD 2 GM in D5W MINI-BAG PLUS 50 ML IV SCH (10:33)
[2022-05-18 11:48] VITALS: BP 118/60
[2022-05-18 12:21] LABS: ALBUMIN 2.4 G/DL (3.2-5.2); ALKALINE PHOSPHATASE 69 U/L (46-116); ALT/SGPT 17 U/L (7.0-40); AST/SGOT 16 U/L (<34); BILIRUBIN,DIRECT 0.2 MG/DL (<0.4); BILIRUBIN,TOTAL 0.6 MG/DL (0.3-1.2)
[2022-05-18 16:29] VITALS: BP 111/61
[2022-05-18 18:38] LABS: TOTAL PROTEIN 5.9 G/DL (5.7-8.2)
[2022-05-18] MEDS: DOXYCYCLINE HYCLATE 100MG TABLET PO SCH (20:18)
[2022-05-18 20:55] VITALS: BP 119/65
[2022-05-19] VITALS (7 sets, daily range): BP systolic 102–125; BP diastolic 55–71
[2022-05-19] MEDS: IPRATROPIUM 0.5MG/ALBUTEROL 2.5MG INH SOL UD 3ML (DUONEB) NEB SCH ×4 (00:45→20:30)
[2022-05-19 04:55] LABS: BASO % 0.2 % (0.0-1.0); EOS # 0.1 10^3/uL (0.0-0.5); EOS % 0.5 % (0.0-3.0); HEMATOCRIT 33.7 % (36.0-47.0); HEMOGLOBIN 11.5 g/dl (12.0-15.5); LYMPH # 1.7 10^3/uL (1.5-5.0); LYMPH % 16.1 % (24.0-44.0); MEAN CORPUSCULAR HEMOGLOBIN 30.8 pg (27.0-33.0); MEAN CORPUSCULAR HGB CONC 34.1 g/dl (32.0-36.5); MEAN CORPUSCULAR VOLUME 90.3 fl (80.0-96.0); MONO # 0.8 10^3/uL (0.0-0.8); MONO % 7.3 % (2.0-8.0); NEUTROPHILS % 75.2 % (36.0-66.0); PLATELET COUNT, AUTOMATED 239 10^3/uL (150-450); RED BLOOD COUNT 3.73 10^6/uL (4.00-5.40); WHITE BLOOD COUNT 10.6 10^3/uL (4.0-10.0)
[2022-05-19] MEDS: ACETAMINOPHEN TAB 650MG DOSE (2X325MG) PO PRN ×3 (05:09→18:49)
[2022-05-19 05:55] LABS: ALBUMIN 2.8 G/DL (3.2-5.2); ALKALINE PHOSPHATASE 97 U/L (46-116); ALT/SGPT 22 U/L (7.0-40); AST/SGOT 23 U/L (<34); BILIRUBIN,TOTAL 0.6 MG/DL (0.3-1.2); BLOOD UREA NITROGEN < 5 MG/DL (9-23); CARBON DIOXIDE LEVEL 24 MMOL/L (20-31); CHLORIDE LEVEL 106 MMOL/L (98-107); GLOMERULAR FILTRATION RATE > 60.0 (>58); GLUCOSE, FASTING 97 MG/DL (60-100); POTASSIUM SERUM 3.3 MMOL/L (3.5-5.1); SODIUM LEVEL 138 MMOL/L (136-145); TOTAL PROTEIN 6.6 G/DL (5.7-8.2)
[2022-05-19] MEDS ORDERED: POTASSIUM CHLORIDE 10MEQ SR TABLET PO ONE (07:25)
[2022-05-19] MEDS: DOXYCYCLINE HYCLATE 100MG TABLET PO SCH ×2 (07:54→19:47)
[2022-05-19] MEDS: ENOXAPARIN 40MG/0.4ML SYRINGE (J1650 PER 10MG) SC SCH (07:55)
[2022-05-19] MEDS: PANTOPRAZOLE 40MG TAB (PROTONIX) PO SCH (07:55)
[2022-05-19] MEDS: cefTRIAXone SOD 2 GM in D5W MINI-BAG PLUS 50 ML IV SCH (10:33)
[2022-05-19 14:09] LABS: BODY FLUID CULTURE Not indicated. (.); LEGIONELLA ANTIGEN URINE Negative (Negative); ORGANISM ID Not indicated. (.); SPECIMEN SOURCE Urine (.); URINE STREP PNEUMONIAE ANTIGEN Negative (Negative)
[2022-05-20] MEDS: IPRATROPIUM 0.5MG/ALBUTEROL 2.5MG INH SOL UD 3ML (DUONEB) NEB SCH ×4 (01:21→20:04)
[2022-05-20 05:23] VITALS: BP 109/61
[2022-05-20 06:19] LABS: BASO % 0.5 % (0.0-1.0); EOS # 0.2 10^3/uL (0.0-0.5); EOS % 3.4 % (0.0-3.0); HEMATOCRIT 34.1 % (36.0-47.0); HEMOGLOBIN 11.5 g/dl (12.0-15.5); LYMPH # 1.7 10^3/uL (1.5-5.0); LYMPH % 26.4 % (24.0-44.0); MEAN CORPUSCULAR HGB CONC 33.7 g/dl (32.0-36.5); MEAN CORPUSCULAR VOLUME 91.9 fl (80.0-96.0); MONO # 0.7 10^3/uL (0.0-0.8); NEUTROPHILS # 3.8 10^3/uL (1.5-8.5); NEUTROPHILS % 58.1 % (36.0-66.0); PLATELET COUNT, AUTOMATED 269 10^3/uL (150-450); RED BLOOD COUNT 3.71 10^6/uL (4.00-5.40); WHITE BLOOD COUNT 6.5 10^3/uL (4.0-10.0)
[2022-05-20 06:47] LABS: ALBUMIN 2.7 G/DL (3.2-5.2); ALKALINE PHOSPHATASE 88 U/L (46-116); ALT/SGPT 19 U/L (7.0-40); AST/SGOT 18 U/L (<34); BILIRUBIN,TOTAL 0.3 MG/DL (0.3-1.2); BLOOD UREA NITROGEN 10 MG/DL (9-23); CALCIUM LEVEL 8.3 MG/DL (8.5-10.1); CARBON DIOXIDE LEVEL 26 MMOL/L (20-31); CHLORIDE LEVEL 109 MMOL/L (98-107); CREATININE FOR GFR 0.47 MG/DL (0.55-1.30); GLOMERULAR FILTRATION RATE > 60.0 (>58); GLUCOSE, FASTING 99 MG/DL (60-100); POTASSIUM SERUM 3.9 MMOL/L (3.5-5.1); SODIUM LEVEL 141 MMOL/L (136-145); TOTAL PROTEIN 6.5 G/DL (5.7-8.2)
[2022-05-20] MEDS: DOXYCYCLINE HYCLATE 100MG TABLET PO SCH ×2 (08:10→19:45)
[2022-05-20] MEDS: ENOXAPARIN 40MG/0.4ML SYRINGE (J1650 PER 10MG) SC SCH (08:10)
[2022-05-20] MEDS: PANTOPRAZOLE 40MG TAB (PROTONIX) PO SCH (08:10)
[2022-05-20] MEDS: ACETAMINOPHEN TAB 650MG DOSE (2X325MG) PO PRN (08:14)
[2022-05-20] MEDS ORDERED: KETOROLAC 30 MG/ML 1ML VIAL IV ONE (08:55)
[2022-05-20] MEDS: cefTRIAXone SOD 2 GM in D5W MINI-BAG PLUS 50 ML IV SCH (10:04)
[2022-05-20 14:00] VITALS: BP 107/59
[2022-05-20 16:53] LABS: ERYTHROCYTE SEDIMENTATION RATE 60 mm/hr (0-20)
[2022-05-20 20:00] VITALS: BP 121/71
[2022-05-21] MEDS: IPRATROPIUM 0.5MG/ALBUTEROL 2.5MG INH SOL UD 3ML (DUONEB) NEB SCH ×2 (01:43→07:52)
[2022-05-21 06:00] VITALS: BP 111/70
[2022-05-21 06:18] LABS: BASO % 0.5 % (0.0-1.0); EOS # 0.2 10^3/uL (0.0-0.5); EOS % 3.2 % (0.0-3.0); HEMATOCRIT 37.2 % (36.0-47.0); HEMOGLOBIN 12.5 g/dl (12.0-15.5); LYMPH # 1.8 10^3/uL (1.5-5.0); LYMPH % 29.5 % (24.0-44.0); MEAN CORPUSCULAR HEMOGLOBIN 30.8 pg (27.0-33.0); MEAN CORPUSCULAR HGB CONC 33.6 g/dl (32.0-36.5); MEAN CORPUSCULAR VOLUME 91.6 fl (80.0-96.0); MONO # 0.6 10^3/uL (0.0-0.8); MONO % 10.3 % (2.0-8.0); NEUTROPHILS # 3.5 10^3/uL (1.5-8.5); NEUTROPHILS % 55.4 % (36.0-66.0); PLATELET COUNT, AUTOMATED 310 10^3/uL (150-450); RED BLOOD COUNT 4.06 10^6/uL (4.00-5.40); WHITE BLOOD COUNT 6.2 10^3/uL (4.0-10.0)
[2022-05-21 06:49] LABS: ALBUMIN 2.9 G/DL (3.2-5.2); ALKALINE PHOSPHATASE 88 U/L (46-116); ALT/SGPT 18 U/L (7.0-40); AST/SGOT 13 U/L (<34); BILIRUBIN,TOTAL 0.4 MG/DL (0.3-1.2); BLOOD UREA NITROGEN 10 MG/DL (9-23); CALCIUM LEVEL 9.2 MG/DL (8.5-10.1); CARBON DIOXIDE LEVEL 26 MMOL/L (20-31); CHLORIDE LEVEL 104 MMOL/L (98-107); GLOMERULAR FILTRATION RATE > 60.0 (>58); GLUCOSE, FASTING 96 MG/DL (60-100); POTASSIUM SERUM 4.1 MMOL/L (3.5-5.1); SODIUM LEVEL 138 MMOL/L (136-145)
[2022-05-21] MEDS ORDERED: CEFU50TA PO (07:24)
[2022-05-21] MEDS ORDERED: PROB250C PO (07:24)
[2022-05-21] MEDS ORDERED: DOXY100T PO (07:24)
[2022-05-21] MEDS ORDERED: APAP325T4 PO (07:24)
[2022-05-21] MEDS ORDERED: MUCI600T31 PO (07:24)
[2022-05-21] MEDS ORDERED: FUROSEMIDE 20MG/2ML VIAL IV ONE (08:00)
[2022-05-21] MEDS ORDERED: VENTAER INH (08:26)
[2022-05-21] MEDS: DOXYCYCLINE HYCLATE 100MG TABLET PO SCH (08:36)
[2022-05-21] MEDS: PANTOPRAZOLE 40MG TAB (PROTONIX) PO SCH (08:37)
[2022-05-21] MEDS: cefTRIAXone SOD 2 GM in D5W MINI-BAG PLUS 50 ML IV SCH (08:37)
[2022-05-21] MEDS: ENOXAPARIN 40MG/0.4ML SYRINGE (J1650 PER 10MG) SC SCH (08:37)
== END 2022-05-21 10:55 | disposition home or self-care (01) | DRG 720 ==
LOC: M ED 11:44 → M PCU 16:25 → M MSPAV 05-19 18:20
PROVIDERS: ADMIT General Practice; ATTEND Internal Medicine
DX: A41.9 Sepsis, unspecified organism (principal); J90 Pleural effusion, not elsewhere classified; J18.9 Pneumonia, unspecified organism; E83.51 Hypocalcemia; K76.0 Fatty (change of) liver, not elsewhere classified; E87.6 Hypokalemia; M25.512 Pain in left shoulder; M54.9 Dorsalgia, unspecified; R11.2 Nausea with vomiting, unspecified; R10.9 Unspecified abdominal pain

== ENCOUNTER → 2022-06-06 | Outpatient (CLI) | payer OTHER ==
[~2022-06-06] MED LIST changes: +APAP325T4 PO; +CEFU50TA PO; +DOXY100T PO; +MUCI600T31 PO; +PROB250C PO; +VENTAER INH
== END ==
LOC: M RAD 12:55
PROVIDERS: ATTEND Nurse Practitioner Family
DX: J18.9 Pneumonia, unspecified organism (principal)

== ENCOUNTER 2023-12-23 17:05 | Emergency (ER) | payer OTHER ==
[~2023-12-23] VITALS: Ht 152.4 cm; Wt 68.6 kg
[2023-12-23 17:10] VITALS: BP 124/69; TEMP 97.7; O2SAT 99
[2023-12-23 17:58] LABS: HCG, SERUM QUALITATIVE POSITIVE (NEGATIVE)
[2023-12-23 18:45] LABS: HCG, SERUM QUANTITATIVE 41509.6 MIU/ML (<4.2)
== END 2023-12-23 20:49 | disposition home or self-care (01) ==
LOC: M ED 17:05
DX: O26.851 Spotting complicating pregnancy, first trimester (principal); Z3A.09 9 weeks gestation of pregnancy

== ENCOUNTER → 2024-01-02 | Outpatient (CLI) | payer OTHER ==
[2024-01-02 17:50] LABS: HEMATOCRIT 35.5 % (36.0-47.0); HEMOGLOBIN 12.2 g/dl (12.0-15.5); MEAN CORPUSCULAR HEMOGLOBIN 31.1 pg (27.0-33.0); MEAN CORPUSCULAR HGB CONC 34.4 g/dl (32.0-36.5); MEAN CORPUSCULAR VOLUME 90.6 fl (80.0-96.0); PLATELET COUNT, AUTOMATED 209 10^3/uL (150-450); RED BLOOD COUNT 3.92 10^6/uL (4.00-5.40); WHITE BLOOD COUNT 5.5 10^3/uL (4.0-10.0)
[2024-01-02 18:53] LABS: HIV 1&2 SCREEN NEGATIVE (NEGATIVE)
[2024-01-02 19:00] LABS: HEPATITIS C VIRUS ABY INDEX 0.07 INDEX (<0.8)
[2024-01-02 21:28] LABS: GC DNA AMPLIFICATION NEGATIVE (NEGATIVE)
== END ==
LOC: M PLALAB 15:54
PROVIDERS: ATTEND Advanced Practice Midwife
DX: Z34.81 Encounter for supervision of other normal pregnancy, first trimester (principal)

== ENCOUNTER → 2024-01-02 | Outpatient (REF) | payer OTHER | LOC: M PLALAB 15:21 | PROVIDERS: ATTEND Advanced Practice Midwife | DX: Z34.81 Encounter for supervision of other normal pregnancy, first trimester (principal) ==

== ENCOUNTER → 2024-04-25 | Outpatient (CLI) | payer OTHER ==
[2024-04-25 18:53] LABS: HEMATOCRIT 36.2 % (36.0-47.0); MEAN CORPUSCULAR HEMOGLOBIN 31.5 pg (27.0-33.0); MEAN CORPUSCULAR HGB CONC 33.1 g/dl (32.0-36.5); PLATELET COUNT, AUTOMATED 181 10^3/uL (150-450); RED BLOOD COUNT 3.81 10^6/uL (4.00-5.40); WHITE BLOOD COUNT 6.3 10^3/uL (4.0-10.0)
[2024-04-25 19:20] LABS: GLUCOSE CHALLENGE TEST 1 HOUR 147 MG/DL (LESS THAN 140)
[2024-04-25 19:50] LABS: HIV 1&2 SCREEN NEGATIVE (NEGATIVE)
[2024-04-25 19:58] LABS: HEPATITIS C VIRUS ABY INDEX 0.04 INDEX (<0.8)
[2024-04-25 20:13] LABS: GC DNA AMPLIFICATION NEGATIVE (NEGATIVE)
== END ==
LOC: M PLALAB 14:48
PROVIDERS: ATTEND Advanced Practice Midwife
DX: Z34.82 Encounter for supervision of other normal pregnancy, second trimester (principal)

== ENCOUNTER → 2024-04-30 | Outpatient (REF) | payer OTHER | LOC: M SFHCWAGY 14:34 | PROVIDERS: ATTEND Advanced Practice Midwife | DX: J02.9 Acute pharyngitis, unspecified (principal) ==

== ENCOUNTER → 2024-05-07 | Outpatient (CLI) | payer OTHER | LOC: M LAB 08:20 | PROVIDERS: ATTEND Advanced Practice Midwife | DX: O99.810 Abnormal glucose complicating pregnancy (principal) ==

== ENCOUNTER → 2024-06-21 | Outpatient (REF) | payer OTHER | END | disposition home or self-care (01) | LOC: M SFHCWAGY 13:03 | PROVIDERS: ATTEND Advanced Practice Midwife | DX: Z53.9 Procedure and treatment not carried out, unspecified reason (principal) ==

== ENCOUNTER 2024-07-23 16:12 | Emergency (ER) | payer OTHER ==
[~2024-07-23] VITALS: Ht 149.9 cm; Wt 62.3 kg
[2024-07-23 18:19] LABS: KETONE, URINE AUTO RFX NEGATIVE (NEGATIVE); LEUKOCYTE ESTERASE UR AUTO RFX 2+ (NEGATIVE); MUCUS, URINE RFX SMALL (NEGATIVE); NITRITE, URINE AUTO RFX NEGATIVE (NEGATIVE); RBC, URINE AUTO RFX 11 /HPF (0-3); SQUAM EPITHELIAL CELL UR AURFX 11 /HPF (0-6); WBC, URINE AUTO RFX 6 /HPF (0-3)
[2024-07-23 18:28] LABS: BASO % 0.4 % (0.0-1.0); EOS # 0.3 10^3/uL (0.0-0.5); EOS % 3.6 % (0.0-3.0); HEMATOCRIT 39.4 % (36.0-47.0); LYMPH # 2.7 10^3/uL (1.5-5.0); LYMPH % 36.7 % (24.0-44.0); MEAN CORPUSCULAR HEMOGLOBIN 30.4 pg (27.0-33.0); MEAN CORPUSCULAR VOLUME 92.1 fl (80.0-96.0); MONO # 0.8 10^3/uL (0.0-0.8); MONO % 10.3 % (2.0-8.0); NEUTROPHILS # 3.6 10^3/uL (1.5-8.5); NEUTROPHILS % 48.5 % (36.0-66.0); PLATELET COUNT, AUTOMATED 268 10^3/uL (150-450); RED BLOOD COUNT 4.28 10^6/uL (4.00-5.40); WHITE BLOOD COUNT 7.3 10^3/uL (4.0-10.0)
[2024-07-23 18:41] LABS: INR 0.98; PARTIAL THROMBOPLASTIN TIME 30.8 SECONDS (24.8-34.2); PROTHROMBIN TIME 13.3 SECONDS (12.5-14.5)
[2024-07-23 19:04] LABS: BLOOD UREA NITROGEN 12 MG/DL (9-23); CALCIUM LEVEL 8.6 MG/DL (8.5-10.1); CARBON DIOXIDE LEVEL 27 MMOL/L (20-31); CHLORIDE LEVEL 103 MMOL/L (98-107); GLOMERULAR FILTRATION RATE > 90.0 (>58); GLUCOSE, FASTING 89 MG/DL (60-100); POTASSIUM SERUM 4.2 MMOL/L (3.5-5.1); SODIUM LEVEL 139 MMOL/L (136-145)
[2024-07-23] MEDS ORDERED: GASTROGRAFIN SOLUTION 30ML PO SCH (19:30)
[2024-07-23 19:37] LABS: Trichomonas vaginalis (AMP) NOT DETECTED (NEGATIVE)
[2024-07-23] MEDS ORDERED: ISOVUE-370 76% 100ML VIAL As Ordered ONE (19:43)
[2024-07-23 20:01] LABS: GC DNA AMPLIFICATION NEGATIVE (NEGATIVE)
[2024-07-23 22:06] VITALS: BP 115/57; TEMP 97.5; O2SAT 98
[2024-07-23] MEDS ORDERED: IBUP-1022 PO (23:02)
== END 2024-07-23 23:26 | disposition home or self-care (01) ==
LOC: M ED 16:12
DX: R10.2 Pelvic and perineal pain (principal); N83.292 Other ovarian cyst, left side; I10 Essential (primary) hypertension; Z79.1 Long term (current) use of non-steroidal anti-inflammatories (NSAID)
CPT/HCPCS: 36415; 74177; 76856; 80048; 81001; 85025; 85610; 85730; 86850; 86900; 86901; 87088; 87186; 87210; 87661; 87810; 87850; 93976; 99284; Q9967